=== PATIENT | male | born 1960 | race Caucasian/White ===

== ENCOUNTER 2017-05-31 08:24 | Emergency (ER) | payer OTHER ==
[~2017-05-31] VITALS: Ht 177.8 cm; Wt 134.0 kg
[2017-05-31 08:30] VITALS: BP 158/83; PULSE 82; RESP 16; TEMP 98.5; O2SAT 97
[2017-05-31] MEDS ORDERED: LEVO.15 PO (08:45)
[2017-05-31] MEDS ORDERED: LOSA50TA PO (08:46)
[2017-05-31] MEDS ORDERED: AMLO2.5T PO (08:46)
[2017-05-31 08:53] LABS: BILIRUBIN, URINE NEG (NEG); BLOOD, URINE MOD (NEG); GLUCOSE,URINE NEG (NEG); KETONE, URINE NEG (NEG); NITRITE,URINE POS (NEG); PH, URINE 5.5 (5.0-8.5); URINE COLOR YELLOW (YELLW/STRAW); URINE LEUKOCYTE ESTERASE MOD (NEG)
[2017-05-31 08:58] LABS: BACTERIA, URINE MANY /hpf; RBC, URINE 15-19 /hpf (0-3); SQUAMOUS EPITHELIAL CELL URINE 0-5 /hpf (0-5); WBC, URINE INNUM /hpf (0-5); WHITE BLOOD CELL CLUMPS MOD
--- NOTE | 2017-05-31 09:13 | PD ---
HPI Chief Complaint: Complaint Time Seen by Provider: 08:58 Travel History International Travel<30 days: No Contact w/Intl Traveler<30days: No Traveled to known affect area: No History of Present Illness HPI This 56-year-old male stated burning with urination and fever for 3 weeks. He went to his doctor and was put on Macrodantin which he says he took. He says it did not stop the fever. He has high fevers associated with drenching sweats and shaking chills. He has some pain in the flank areas. He has a history of hypertension and low thyroid. He also has hereditary hemochromatosis that was diagnosed by liver biopsy. He has had a history of kidney stones in the past. He has had lithotripsy and saw Dr. Granger in the past for his kidney stones. He has been urinating frequently. He has been tired PFSH Past Medical History Cardiovascular Problems: Yes (htn on meds) High Cholesterol: Yes Diminished Hearing: No Hypertension: Yes Tetanus Vaccination: Unknown Influenza Vaccination: No Social History Alcohol Use: No Tobacco Use: No Substance Use: No Allergies-Medications (Allergen,Severity, Reaction): Coded Allergies: penicillin G (Unverified Allergy, Mild, Rash, 05/31/17) Reported Meds & Prescriptions Reported Meds & Active Scripts Active Reported Amlodipine (Amlodipine Besylate) 2.5 Mg Tab Unknown Dose PO DAILY Losartan (Losartan Potassium) 50 Mg Tab Unknown Dose PO DAILY Synthroid (Levothyroxine Sodium) 150 Mcg Tab 150 Mcg PO DAILY Review of Systems General / Constitutional: Positive: Fever, Chills Eyes: No: Diploplia, Blurred Vision HENT: No: Headaches, Vertigo Cardiovascular: No: Chest Pain or Discomfort, Palpitations Respiratory: No: Cough, Shortness of Breath Gastrointestinal: No: Nausea, Vomiting Genitourinary: Positive: Urgency, Frequency Skin: No Rash, No Itching Neurologic: Positive: Weakness Endocrine: No: Cold Intolerance Hematologic/Lymphatic: No: Easy Bruising Physical Exam Narrative GENERAL: Well-developed male SKIN: Focused skin assessment warm/dry. HEAD: Atraumatic. Normocephalic. EYES: Pupils equal and round. No scleral icterus. No injection or drainage. ENT: No nasal bleeding or discharge. Mucous membranes pink and moist. NECK: Trachea midline. No JVD. CARDIOVASCULAR: Regular rate and rhythm. No murmur appreciated. RESPIRATORY: No accessory muscle use. Clear to auscultation. Breath sounds equal bilaterally. GASTROINTESTINAL: Abdomen soft, non-tender, nondistended. Hepatic and splenic margins not palpable. MUSCULOSKELETAL: No obvious deformities. No clubbing. No cyanosis. No edema. NEUROLOGICAL: Awake and alert. No obvious cranial nerve deficits. Motor grossly within normal limits. Normal speech. PSYCHIATRIC: Appropriate mood and affect; insight and judgment normal. Data Data Last Documented VS Vital Signs Date Time Temp Pulse Resp B/P (MAP) Pulse Ox O2 Delivery O2 Flow Rate FiO2 05/31/17 08:30 98.5 82 16 158/83 (108) 97 Orders Orders Urinalysis - C+S If Indicated (05/31/17 08:28) Urine Culture (05/31/17 08:30) Complete Blood Count With Diff (05/31/17 09:09) Basic Metabolic Panel (Bmp) (05/31/17 09:09) Ct Abd/Pel W/O Iv Contrast (05/31/17 09:09) Ceftriaxone Inj (Rocephin Inj) (05/31/17 09:15) Labs Laboratory Tests Test 05/31/17 08:30 05/31/17 09:21 Urine Collection Type CLEAN CATCH Urine Color YELLOW Urine Turbidity CLOUDY Urine pH 5.5 Urine Specific H[place]man 1.025 Urine Protein 30 mg/dL Urine Glucose (UA) NEG mg/dL Urine Ketones NEG mg/dL Urine Occult Blood MOD Urine Nitrite POS Urine Bilirubin NEG Urine Urobilinogen 0.2 MG/DL Urine Leukocyte Esterase MOD Urine RBC 15-19 /hpf Urine WBC INNUM /hpf Urine WBC Clumps MOD Urine Squamous Epithelial Cells 0-5 /hpf Urine Bacteria MANY /hpf Microscopic Urinalysis Comment CULTURE INDICATED Urine Collection Time 08:30 White Blood Count 10.0 TH/MM3 Red Blood Count 4.86 MIL/MM3 Hemoglobin 14.3 GM/DL Hematocrit 42.4 % Mean Corpuscular Volume 87.2 FL Mean Corpuscular Hemoglobin 29.4 PG Mean Corpuscular Hemoglobin Concent 33.8 % Red Cell Distribution Width 14.3 % Platelet Count 366 TH/MM3 Mean Platelet Volume 7.3 FL Neutrophils (%) (Auto) 77.9 % Lymphocytes (%) (Auto) 10.5 % Monocytes (%) (Auto) 9.9 % Eosinophils (%) (Auto) 1.2 % Basophils (%) (Auto) 0.5 % Neutrophils # (Auto) 7.9 TH/MM3 Lymphocytes # (Auto) 1.0 TH/MM3 Monocytes # (Auto) 1.0 TH/MM3 Eosinophils # (Auto) 0.1 TH/MM3 Basophils # (Auto) 0.0 TH/MM3 CBC Comment DIFF FINAL Differential Comment Blood Urea Nitrogen 18 MG/DL Creatinine 1.40 MG/DL Random Glucose 91 MG/DL Calcium Level 9.4 MG/DL Sodium Level 138 MEQ/L Potassium Level 4.2 MEQ/L Chloride Level 105 MEQ/L Carbon Dioxide Level 27.4 MEQ/L Anion Gap 6 MEQ/L Estimat Glomerular Filtration Rate 52 ML/MIN MDM Medical Decision Making Medical Screen Exam Complete: Yes Emergency Medical Condition: Yes Medical Record Reviewed: Yes Differential Diagnosis Differential includes UTI, prostatitis, Narrative Course She does have history of frequent kidney stones as concerned that he might have a kidney stone associated with this infection. CT scan of the abdomen and pelvis shows obstructive uropathy on the right with a proximal ureteral calculus which measures 16 x 13 mm. His hemoglobin is 14 with a white count of 10,000. Urinalysis shows innumerable white cells. My plan was to call urology because the patient has bad infection associated with kidney stone and I thought would warrant inpatient treatment. The patient is adamant that he will not be admitted. I have advised him he will not be able to pass the stone he says he will see a urologist in [place] as he does not want to come up to [facility]. In the past he had seen Dr. Granger and he believes Dr. Heredia may be seeing his patients. I will prescribe Cipro Diagnosis Primary Impression: UTI (urinary tract infection) Additional Impression: Right ureteral calculus Scripts Ciprofloxacin (Cipro) 500 Mg Tab 500 MG PO BID for Infection for 14 Days, #28 TAB 0 Refills Prov: Flavio Wilson MD 05/31/17 Disposition: 01 DISCHARGE HOME Condition: Stable Flavio Wilson MD May 31, 2017 09:13
[2017-05-31] MEDS ORDERED: cefTRIAXone INJ 2,000 MG in SODIUM CHLORIDE 0.9% INJ 100 ML IV ONE (09:15)
[2017-05-31 09:31] LABS: AUTOMATED NEUTROPHIL # 7.9 TH/MM3 (1.8-7.7); BASOPHIL % 0.5 % (0.0-2.0); EOSINOPHIL # 0.1 TH/MM3 (0-0.4); EOSINOPHIL % 1.2 % (0.0-4.0); HEMATOCRIT 42.4 % (39.0-51.0); HEMOGLOBIN 14.3 GM/DL (13.0-17.0); LYMPH % 10.5 % (9.0-44.0); MEAN CELL VOLUME 87.2 FL (80.0-100.0); MEAN CORPUSCULAR HEMOGLOBIN 29.4 PG (27.0-34.0); MEAN CORPUSCULAR HGB CONC 33.8 % (32.0-36.0); MEAN PLATELET VOLUME 7.3 FL (7.0-11.0); MONO % 9.9 % (0.0-8.0); NEUT % 77.9 % (16.0-70.0); PLATELET COUNT 366 TH/MM3 (150-450); RED BLOOD COUNT 4.86 MIL/MM3 (4.50-5.90); RED CELL DISTRIBUTION WIDTH 14.3 % (11.6-17.2)
[2017-05-31 09:58] LABS: BICARBONATE 27.4 MEQ/L (21.0-32.0); CALCIUM 9.4 MG/DL (8.5-10.1)
[2017-05-31 10:02] LABS: CREATININE 1.4 MG/DL (0.60-1.30)
--- NOTE | 2017-05-31 10:31 | RADRPT ---
EXAM DATE/TIME: 05/31/2017 10:06 [facility] COMPARISON: No previous studies available for comparison. INDICATIONS : Intermittent bilateral flank pain and fever x 3 weeks. ORAL CONTRAST: No oral contrast ingested. RADIATION DOSE: 27.42 CTDIvol (mGy) ; Patient body habitus MEDICAL HISTORY : Hypertension. Renal calculi. SURGICAL HISTORY : None. ENCOUNTER: Initial ACUITY: 3 weeks PAIN SCALE: 2/10 LOCATION: Bilateral flank TECHNIQUE: Volumetric scanning of the abdomen and pelvis was performed. Using automated exposure control and ad justment of the mA and/or kV according to patient size, radiation dose was kept as low as reasonably achievable to obtain optimal diagnostic quality images. DICOM format image data is available electro nically for review and comparison. FINDINGS: LOWER LUNGS: The visualized lower lungs are clear. LIVER: Homogeneous density without lesion. There is no dilation of the biliary tree. No calcified gallston es. SPLEEN: Normal size without lesion. PANCREAS: Within normal limits. KIDNEYS: There is evidence of acute obstructive uropathy of the right proximal ureter at the ureteropelvic mario ction secondary to a calcified 16 x 13 mm calculus resulting in moderate pelvocaliectasis. There are small non-obstructing calcified left renal calculi with the largest measuring 8 mm. There are 2 left renal cysts with the larger measuring 5.8 cm. ADRENAL GLANDS: Within normal limits. VASCULAR: There is no aortic aneurysm. BOWEL/MESENTERY: Uncomplicated colonic diverticulosis is noted. No acute diverticulitis is noted. ABDOMINAL WALL: Within normal limits. RETROPERITONEUM: There is no lymphadenopathy. BLADDER: No wall thickening or mass. REPRODUCTIVE: Within normal limits. INGUINAL: There is no lymphadenopathy or hernia. MUSCULOSKELETAL: Degenerative changes are noted throughout the lumbar spine CONCLUSION: 1. 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 2. Multiple calcified nonobstructing left renal calculi. 3. Multiple left renal cysts. 4. Uncomplicated colonic diverticulosis. 5. Degenerative changes of the lumbar spine. Davidson Murphy MD on May 31, 2017 at 10:22 Board Certified Radiologist. This report was verified electronically.
[2017-05-31] MEDS ORDERED: CIPR-9 PO (10:49)
== END 2017-05-31 10:56 | disposition home or self-care (01) ==
LOC: PHED 08:24
DX: N39.0 Urinary tract infection, site not specified (principal); B96.20 Unspecified Escherichia coli [E. coli] as the cause of diseases classified elsewhere; N20.1 Calculus of ureter; I10 Essential (primary) hypertension; E78.00 Pure hypercholesterolemia, unspecified; E03.9 Hypothyroidism, unspecified
CPT/HCPCS: 74176; 80048; 81001; 85025; 87077; 87086; 87186; 96365; 99284; J0696